=== PATIENT | female | born 1980 | race Caucasian/White ===

== ENCOUNTER 2016-10-01 23:59 | Observation (INO) | payer OTHER ==
[2016-10-02 00:08] VITALS: BMI 46.5
[2016-10-02] MEDS ORDERED: ALBUTEROL SO4 2.5/IPRATROPIUM 0.5 INH SOL 3 ML VIAL.NEB. NEB ONE (01:03)
--- NOTE | 2016-10-02 01:06 | PDOC ---
History of Present Illness - General Chief Complaint: Shortness of Breath Stated Complaint: HEAD/NECK PROBLEM Time Seen by Provider: 10/02/16 00:39 - History of Present Illness Initial Comments: 10/02/16 01:04 CHIEF COMPLAINT: chest pain/SOB HISTORY OF PRESENT ILLNESS: 36 yo F with hx of morbid obesity, prediabetes (on Metformin) and HTN (on Lisinopril) presents to ED with head and neck pain and shortness of breath since yesterday with associated chest pain. Patient states she had a bad headache yesterday and then later started feeling a lot of chest pressure and felt like she couldn't breathe. She denies any radiation of pain to her jaw or left arm and reports that the pain is more to the sides of her neck. No recent travel or sick contacts. PAST MEDICAL HISTORY: HTN, prediabetic FAMILY HISTORY: Denies SOCIAL HISTORY: Denies tobacco, alcohol, illicit drug use. SURGICAL HISTORY: hysterectomy ALLERGIES: PCN REVIEW OF SYSTEMS General/Constitutional: Denies fever or chills. Denies weakness, weight change. HEENT: Denies change in vision. Denies ear pain or discharge. Denies sore throat. Cardiovascular: Denies chest pain or shortness of breath. Respiratory: Denies cough, wheezing, or hemoptysis. Gastrointestinal: Denies nausea, vomiting, diarrhea or constipation. Denies rectal bleeding. Genitourinary: Denies dysuria, frequency, or change in urination. Musculoskeletal: Neck discomfort. Denies joint or muscle swelling or pain. Skin and breasts: Denies rash or easy bruising. Neurologic: Right sided head pain. Denies vertigo, loss of consciousness, or loss of sensation. PHYSICAL EXAM General Appearance: Well-appearing, appropriately dressed. No apparent distress. HEENT: EOMI, PERRLA, normal ENT inspection, normal voice, TMs normal, pharynx normal. No conjunctival pallor. No photophobia, scleral icterus. Neck: Supple. Trachea midline. No tenderness, rigidity, carotid bruit, stridor , lymphadenopathy, or thyromegaly. Respiratory/Chest: Shortness of breath. Lungs CTAB. No respiratory distress, accessory muscle use. No crackles, rales, rhonchi, stridor, wheezing, dullness Cardiovascular: RRR. S1, S2. No JVD, murmur, bradycardia, tachycardia. Musculoskeletal/Extremities: Normal inspection. FROM of all extremities, normal capillary refill. Pelvis Stable. No CVA tenderness. No tenderness to extremities, pedal edema, swelling, erythema or deformity. Integumentary: Appropriate color, dry, warm. No cyanosis, erythema, jaundice or rash Neurologic: programmer developer II-XII intact. Fully oriented, alert. Appropriate mood/affect. Motor strength 5/5. No appreciable EOM palsy, facial droop or sensory deficit. Past History - Past Medical History Allergies/Adverse Reactions: Allergies Allergy/AdvReac Type Severity Reaction Status Date / Time Penicillins Allergy Verified 10/02/16 00:04 Home Medications: Ambulatory Orders Lisinopril 10 mg PO DAILY 10/02/16 Metformin HCl [Glucophage] 500 mg PO DAILY 10/02/16 Diabetes: Yes (borderline) HTN: Yes - Immunization History Td Vaccination: No Immunization Up to Date: No - Psycho/Social/Smoking Cessation Hx Anxiety: No Suicidal Ideation: No Smoking Status: No Smoking History: Never smoked Have you smoked in the past 12 months: No Number of Cigarettes Smoked Daily: 0 Hx Alcohol Use: Yes (Ocassional) Drug/Substance Use Hx: No Substance Use Type: None Hx Substance Use Treatment: No *Physical Exam - Vital Signs Last Vital Signs Temp Pulse Resp BP Pulse Ox 97.9 F 80 16 159/72 99 10/02/16 00:05 10/02/16 00:05 10/02/16 00:05 10/02/16 00:05 10/02/16 00:05 Heart Score/ECG Review - History History: Moderately suspicious - Electrocardiogram EKG: Normal - Age Age: </= 45 - Risk Factors Risk Factors Heart Score: Yes Hx Hypertension, Yes Hx Diabetes, Yes Hx Obesity Based on the list above the patient has:: >/=3 risk factors or Hx atherosclerotic disease - Troponin Troponin: </= normal limit - Score Heart Score - Total: 3 ED Treatment Course - LABORATORY CBC & Chemistry Diagram: 10/02/16 01:24 10/02/16 01:24 - RADIOLOGY Radiology Studies Ordered: Category Date Time Status CHEST PA & LAT [RAD] Stat Radiology 10/02/16 01:02 Ordered Medical Decision Making - Medical Decision Making 10/02/16 06:06 36 yo F with hx of morbid obesity, prediabetes (on Metformin) and HTN (on Lisinopril) presents to ED with head and neck pain and shortness of breath since yesterday with associated chest pain. -CBC, CMP, D-dimer -EKG, CXR -Duoneb EKG - NSR Chest x-ray negative for pulm pathology. Discussed case with attending MD Lynn. Will order Head CT to r/o intracranial pathology. Head CT negative. Per MD Lynn, will admit for obs for ANDREW. -Troponin added to be run from previous labs, will repeat trop at this time. -Mg, PT/INR 10/02/16 06:29 First trop negative. Discussed case with hospitalist attending MD Yepez, who accepts patient for obs for ANDREW. *DC/Admit/Observation/Transfer Diagnosis at time of Disposition: Chest pain, rule out acute myocardial infarction - Discharge Dispostion Admit: Yes
[2016-10-02 01:38] LABS: BASOPHIL 0.8 % (0-2.0); EOSINOPHIL 1.3 % (0-4.5); MCHC 33.8 g/dl (32.0-36.0); MEAN CELL VOLUME 82.7 fl (80-96); NEUTROPHILS 57.8 % (42.8-82.8); PLATELET COUNT 255 K/MM3 (134-434); RDW 13.8 % (11.6-15.6); WHITE BLOOD COUNT 8.5 K/mm3 (4.0-10.0)
[2016-10-02 02:01] LABS: ALBUMIN 3.6 g/dl (3.4-5.0); ALK PHOS 76 U/L (45-117); ANION GAP 10 (8-16); BILIRUBIN,TOTAL 0.4 mg/dL (0.2-1.0); CALCIUM 8.9 mg/dL (8.5-10.1); CO2 27 mmol/L (21-32); CREATININE 0.5 mg/dL (0.55-1.02); GLUCOSE,RANDOM 135 mg/dL (74-106); SGOT/AST 26 U/L (15-37); SGPT/ALT 50 U/L (12-78); TOT PROT 7.2 g/dl (6.4-8.2)
[2016-10-02 06:21] LABS: TROPONIN I < 0.02 ng/ml (0.00-0.05)
[2016-10-02 07:04] LABS: INR 1.02 (0.82-1.09); PROTHROMBIN TIME (PATIENT) 11.2 SEC (9.98-11.88)
[2016-10-02] MEDS ORDERED: SODIUM CHLORIDE 1,000 ML IV SCH (08:30)
--- NOTE | 2016-10-02 08:58 | PN ---
Progress Note (short form) - Note Progress Note: Consult dictated IMP: Right sided neck pain and fullness radiating to anterior chest Pleuritic chest pain Tenderness and fullness right neck REC: Serial cardiac enzymes, doubt ACS Concern for neck soft tissue mass: CT Neck and chest Echo to rule out pericardial effusion
--- NOTE | 2016-10-02 09:36 | EKG ---
Test Reason : Blood Pressure : / mmHG Vent. Rate : 069 BPM Atrial Rate : 069 BPM P-R Int : 168 ms QRS Dur : 098 ms QT Int : 402 ms P-R-T Axes : 047 072 052 degrees QTc Int : 430 ms NORMAL SINUS RHYTHM WITH SINUS ARRHYTHMIA NO PREVIOUS ECGS AVAILABLE Confirmed by MARY RUIZ MD ([id number]) on 10/02/2016 9:35:35 AM Referred By: Confirmed By:MARY RUIZ MD
[2016-10-02] MEDS: LISINOPRIL 10 MG TABLET (FP) PO SCH (09:50)
[2016-10-02] MEDS: ASPIRIN COATED 81 MG TABLET.EC PO SCH (09:50)
--- NOTE | 2016-10-02 10:24 | HP ---
CHIEF COMPLAINT: Chest pain x 3 days PCP: HISTORY OF PRESENT ILLNESS: 36 year old female that presents to the emergency department complaining of 3 day history of mid sternal chest pain, 7/10 in intensity,constant , radiating to the right side of the neck and left upper chest, worsened with deep inspiration. No alleviating factors. Denies associated nausea, vomiting or diaphoresis. No previous episodes of chest pain like this before. Recent Travel: NO PAST MEDICAL HISTORY: DM HTN PAST SURGICAL HISTORY: Tubal Ligation Social History: Smoking: denies Alcohol:denies Drugs: denies Family History: No history of premature coronary disease No history of cancer Allergies Penicillins Allergy (Verified 10/02/16 00:04) HOME MEDICATIONS: Home Medications Medication Instructions Recorded Lisinopril 10 mg PO DAILY 10/02/16 Metformin HCl [Glucophage] 500 mg PO DAILY 10/02/16 REVIEW OF SYSTEMS CONSTITUTIONAL: Absent: fever, chills, diaphoresis, generalized weakness, malaise, loss of appetite, weight change HEENT: Absent: rhinorrhea, nasal congestion, throat pain, throat swelling, difficulty swallowing, mouth swelling, ear pain, eye pain, visual changes CARDIOVASCULAR: Absent: syncope, palpitations, irregular heart rate, lightheadedness RESPIRATORY: Absent: cough, shortness of breath, dyspnea with exertion, orthopnea, wheezing, stridor, hemoptysis GASTROINTESTINAL: Absent: abdominal pain, abdominal distension, nausea, vomiting, diarrhea, constipation, melena, hematochezia GENITOURINARY: Absent: dysuria, frequency, urgency, hesitancy, hematuria, flank pain, genital pain MUSCULOSKELETAL: Absent: myalgia, arthralgia, joint swelling, back pain. Positive for right sided neck pain SKIN: Absent: rash, itching, pallor HEMATOLOGIC/IMMUNOLOGIC: Absent: easy bleeding, easy bruising, lymphadenopathy, frequent infections ENDOCRINE: Absent: unexplained weight gain, unexplained weight loss, heat intolerance, cold intolerance NEUROLOGIC: Absent: headache, focal weakness or paresthesias, dizziness, unsteady gait, seizure, mental status changes, bladder or bowel incontinence PSYCHIATRIC: Absent: anxiety, depression, suicidal or homicidal ideation, hallucinations. PHYSICAL EXAMINATION Vital Signs - 24 hr 10/02/16 10/02/16 10/02/16 06:50 07:17 07:33 Temperature 97.7 F 98.1 F Pulse Rate [ 67 60 Radial] Respiratory 20 18 Rate Blood Pressure 144/68 110/62 [Left Arm] O2 Sat by Pulse 98 100 100 Oximetry (%) GENERAL: Awake, alert, and fully oriented, in no acute distress. HEAD: Normal with no signs of trauma. EYES: Pupils equal, round and reactive to light, extraocular movements intact, sclera anicteric, conjunctiva clear. No lid lag. EARS, NOSE, THROAT: Ears normal, nares patent, oropharynx clear without exudates. Moist mucous membranes. NECK: Normal range of motion, supple without lymphadenopathy, tenderness on palpation of right parotid and submandibular area, no nodules appreciated LUNGS: Breath sounds equal, clear to auscultation bilaterally. No wheezes, and no crackles. No accessory muscle use. HEART: Regular rate and rhythm, normal S1 and S2 without murmur, rub or gallop. ABDOMEN: Soft, nontender, not distended, normoactive bowel sounds, no guarding, no rebound, no masses. Obese . MUSCULOSKELETAL: Normal range of motion at all joints. No bony deformities or tenderness. No CVA tenderness. UPPER EXTREMITIES: 2+ pulses, warm, well-perfused. No cyanosis. No clubbing. No peripheral edema. LOWER EXTREMITIES: 2+ pulses, warm, well-perfused. No calf tenderness. No peripheral edema. NEUROLOGICAL: Cranial nerves II-XII intact. Normal speech. Normal gait. PSYCHIATRIC: Cooperative. Good eye contact. Appropriate mood and affect. SKIN: Warm, dry, normal turgor, no rashes or lesions noted, normal capillary refill. Laboratory Abnormal Lab Results 10/02/16 01:24 Creatinine 0.5 L D Random Glucose 135 H D Rest of the labs are reviewed and within normal limits Troponin is negative x 1 EKG shows NSR , no acute changes ASSESSMENT/PLAN: 36 year old female with risk factors for CAD hospitalized under observation status for management of chest pain which appears to be rather musculoskeletal or pleuritic . ACS is unlikely, pain now lasted for three days , non exertional , constant , troponin is negative and EKG is normal PE- unlikely , DDimer is negative. Will obtain CT chest and Echo to rule out pericardial effusion, CT chest and neck due to abnormal neck exam . Visit type - Emergency Visit Emergency Visit: Yes ED Registration Date: 10/02/16 Care time: The patient presented to the Emergency Department on the above date and was hospitalized for further evaluation of their emergent condition. - New Patient This patient is new to me today: Yes Date on this admission: 10/02/16 - Critical Care Critical Care patient: No
--- NOTE | 2016-10-02 11:06 | CONS ---
CARDIOLOGY CONSULTATION DATE OF CONSULTATION: 10/02/2016 CONSULTATION REQUESTED BY: Irena Yepez MD REASON FOR CONSULTATION: Chest pain. HISTORY OF PRESENT ILLNESS: The patient is a 36-year-old female with hypertension and diabetes who presents to the ER for evaluation of several complaints, which began on , primarily right-sided neck pain and posterior cervical pain, which radiates anteriorly to the anterior neck and anterior portion of the precordium. It is worse with motion of her neck and movement of her torso. It is tender to palpation. She also is experiencing shortness of breath and pleuritic chest pain. In the emergency department, O2 saturation was normal, and D-dimer was negative. She was placed on telemetry for cardiac monitoring. The patient denies exertional chest pain prior to . She denies airline travel or recent viral upper respiratory infections. She denies fevers or chills. PAST MEDICAL HISTORY: Her past medical history is consistent with hypertension, diabetes. PREVIOUS SURGIES: Previous surgeries include ovarian cysts and tubal ligation. ALLERGIES: She is allergic to PENICILLIN. MEDICATIONS: Her home medications include metformin and lisinopril. FAMILY HISTORY: There is no family history of early myocardial infarction. No history of sudden cardiac . No history of arrhythmia or venous thromboembolism. SOCIAL HISTORY: Nonsmoker. Drinks alcohol only socially. PHYSICAL EXAM: Vital signs: She is afebrile. Temperature 98.1. Pulse 60 and regular. Blood pressure 140/70. O2 100% on room air. Neck: The right side of the neck appears slightly full and is tender to palpation. There is some fullness as well on palpating the right anterior neck and right lateral neck. It is tender to palpation. There is no overlying erythema. Pulses seem symmetric bilaterally in the carotid distribution, and there are no bruits. Heart: Regular with no murmurs. Chest: Clear with no wheezing. Abdomen: Obese, soft, nontender. Extremities: No edema. Her radial pulses were 2+ and symmetric bilaterally. Her present EKG showed normal sinus rhythm with sinus arrhythmia at 69 beats per minute and baseline artifact. No acute ST changes. White count 8.5, hematocrit 34, platelets 255. D-dimer negative. Sodium 139, potassium 3.8. Creatinine 0.5. Troponin is negative. Serum test was negative. Chest x-ray showed no acute infiltrates. A CT scan of the head was performed in the ER, which showed no evidence of acute infarction. IMPRESSION: Esfbyp-upp-fyio-old female with diabetes. Two days of right-sided neck pain. Fullness, tenderness to palpation, radiating anteriorly to the anterior precordium. There is also pleuritic chest pain. I doubt that this is an acute coronary syndrome. I am more concerned about a soft tissue mass or possible inflammation/infection in the right side of the neck. PLAN: 1. CT of the neck, with and without contrast. CTA chest as well, given her pleuritic chest pain, to rule out pulmonary embolism. Obesity seems to be a risk factor. 2. Cardiac enzymes. 3. Echocardiogram to rule out pericardial effusion. 4. Discontinue metformin temporarily and hydrate. 5. Further recommendations pending above diagnostic studies. Thank you for the consultation. MARY RUIZ M.D. [id number] MTDD
--- NOTE | 2016-10-02 12:41 | PN ---
Progress Note (short form) - Note Progress Note: CT confirms LAD right neck 1cm. No mass seen in neck or chest. Check ESR, CRP, LDH. Onc and ENT eval requested.
[2016-10-02 14:11] LABS: TROPONIN I < 0.02 ng/ml (0.00-0.05)
[2016-10-02 14:40] LABS: C-REACTIVE PROTEIN 0.8 MG/DL (0.00-0.3)
--- NOTE | 2016-10-02 17:57 | CONSULT ---
Consult Consult Specialty:: Oncology Referred by:: Dr. Sanchez Reason for Consultation:: lymphadenopathy neck - History of Present Illness Chief Complaint: 36 year old presents with 3 days of pleuritic chest pains radiating into neck . CT of neck on right with 1.6 cm lymph node with central hilum and smaller left neck node with central hilum - History Source History Provided By: Patient Limitations to Obtaining History: Language Barrier - Past Medical History ...LMP: 09/07/16 ...: No ...: 3 ...Para: 3 - Alcohol/Substance Use Hx Alcohol Use: No - Smoking History Smoking history: Never smoked Have you smoked in the past 12 months: No Aproximately how many cigarettes per day: 0 - Social History Occupation: not working Place of : [facility] ([place]) Came to .S. (year): age 14 History of Recent Travel: No Home Medications - Allergies Allergies/Adverse Reactions: Allergies Allergy/AdvReac Type Severity Reaction Status Date / Time Penicillins Allergy Verified 10/02/16 00:04 - Home Medications Home Medications: Ambulatory Orders Lisinopril 10 mg PO DAILY 10/02/16 Metformin HCl [Glucophage] 500 mg PO DAILY 10/02/16 Family Disease History - Family Disease History Other Family History: no history of cancer or blood disorder in family ; Mother and father both living ; Family hx of diabetes Mellitus Review of Systems - Review of Systems Constitutional: denies: Diaphoresis, Fever, Lethargy, Loss of Appetite, Weakness Eyes: denies: Blurred Vision, Double Vision HENT: denies: Difficult Swallowing, Throat Pain Neck: reports: Pain on Movement, Swollen Glands Cardiovascular: reports: Chest Pain, Shortness of Breath, Other (pleuritic pain x 3 days) Respiratory: reports: Other (pleuritic pain). denies: Cough, Hemoptysis Gastrointestinal: denies: Abdominal Pain, Constipation, Diarrhea Genitourinary: denies: Burning, Dysuria Breasts: reports: No Symptoms Reported Musculoskeletal: denies: Back Pain, Extremity Pain Integumentary: denies: No Symptoms, Eczema Neurological: reports: No Symptoms Endocrine: reports: No Symptoms Hematology/Lymphatic: reports: No Symptoms Psychiatric: reports: No Symptoms Physical Exam Vital Signs: Vital Signs Temperature 98.2 F 10/02/16 14:36 Pulse Rate 72 10/02/16 14:36 Respiratory Rate 16 10/02/16 14:36 Blood Pressure 109/70 10/02/16 14:36 O2 Sat by Pulse Oximetry (%) 100 10/02/16 08:28 Constitutional: Yes: No Distress Eyes: Yes: EOM Intact, PERRL. No: Diplopia, Ptosis, Sclera Icterus HENT: Yes: Normocephalic. No: Epistaxis, Hoarseness, Tonsillar Exudate Neck: Yes: Other (could not definitely appreciate adenopathy) Cardiovascular: Yes: Regular Rate and Rhythm Respiratory: Yes: CTA Bilaterally Gastrointestinal: Yes: Normal Bowel Sounds, Soft, Abdomen, Obese. No: Hepatomegaly, Splenomegaly, Tenderness Renal/: No: Bladder Distention, CVA Tenderness - Left, CVA Tenderness - Right Breast(s): Yes: WNL Musculoskeletal: No: Back Pain, Muscle Pain Extremities: Yes: WNL. No: Calf Tenderness, Cold Edema: No Integumentary: Yes: WNL Neurological: Yes: WNL ...Motor Strength: WNL Psychiatric: Yes: WNL Imaging - Results Cat Scan: Report Reviewed (right neck with 1.6 cm lymph node with central hilum and smaller node on left neck with central hilum) Problem List - Problems (1) Lymphadenopathy Assessment/Plan: Patient presents with 3 day history of pleuritic chest pains radiating to right neck . On CT imaging 1.6 cm right neck node with central hilum, and smaller left neck node with central hilum noted . Adenopathy on right is only minimally enlarged (upper normal-1.0 cm). The central hilum bespeaks for a benign lymph node rather than an infiltrated one. No recent infection or sinus tenderness reported. It is hard to tie the adenopathy and the chest pain together. . Although benign appearing node, it is mildly enlarged. ENT evaluation pending. EBV, CMV, Toxo titers, SHANTE, collagen screen, ESR to be ordered. If non revealing, can f/u with repeat sono in 3 months. Pending ENT evaluation , can give antibiotic trial for 2 weeks and reimage thereafter Would also do sono of liver. Code(s): R59.1 - GENERALIZED ENLARGED LYMPH NODES
--- NOTE | 2016-10-02 18:53 | CONSULT ---
Consult Consult Specialty:: ENT Referred by:: Dr. Sanchez Reason for Consultation:: enlarged lymph nodes - History of Present Illness History of Present Illness: 36 yo F admitted having pleuritic chest pain, right sided neck pain CT scan shows enlarged lymph nodes nonsmoker, denies throat pain, hoarseness, trouble swallowing no nasal allergies or bleeding denies recent cold or acute illness - History Source History Provided By: Patient, Medical Record Limitations to Obtaining History: Language Barrier - Past Medical History ...LMP: 09/07/16 ...: No - Alcohol/Substance Use Hx Alcohol Use: No - Smoking History Smoking history: Never smoked Have you smoked in the past 12 months: No Aproximately how many cigarettes per day: 0 - Social History Occupation: not working History of Recent Travel: No Home Medications - Allergies Allergies/Adverse Reactions: Allergies Allergy/AdvReac Type Severity Reaction Status Date / Time Penicillins Allergy Verified 10/02/16 00:04 - Home Medications Home Medications: Ambulatory Orders Lisinopril 10 mg PO DAILY 10/02/16 Metformin HCl [Glucophage] 500 mg PO DAILY 10/02/16 Family Disease History - Family Disease History Other Family History: no history of cancer or blood disorder in family ; Mother and father both living ; Family hx of diabetes Mellitus Physical Exam Vital Signs: Vital Signs Temperature 97.7 F 10/02/16 18:00 Pulse Rate 71 10/02/16 18:00 Respiratory Rate 18 10/02/16 18:00 Blood Pressure 137/74 10/02/16 18:00 O2 Sat by Pulse Oximetry (%) 100 10/02/16 08:28 Constitutional: Yes: No Distress, Calm, Obese Eyes: Yes: WNL HENT: Yes: Other (nose DNS, mucosal edema, nasopharynx normal, mouth poor dentition, no lesions tongue position 3, soft palate elongated, Flexible laryngoscopy: base of tongue retro 2+, no lesion visible, epiglottis normal, endolarynx normal, airway patent, no discrete lesion, arytenoid edema, VC mobile symmetric) Neck: Yes: Other (full neck, no discrete mass, supple, salivary glands normal, lymph node palpable Level 2 left, sl tender right jugulodigastric region. significant fullness of neck soft tissue limits accurate palpation) Cardiovascular: Yes: Bradycardia Extremities: Yes: WNL Neurological: Yes: Alert, Oriented Imaging - Results Cat Scan: Report Reviewed, Image Reviewed Problem List - Problems (1) Lymphadenopathy Assessment/Plan: 2 slightly enlarged lymph nodes noted on CT scan of neck Dr. Downing's evaluation noted and appreciated pt is a nonsmoker, has no throat symptoms and flexible laryngoscopy does not reveal any obvious upper airway lesions CT scan images reviewed, no masses noted suspect lymph nodes are reactive, suggest follow-up pts PMD in [facility] ([facility] she does not remember his/her name suggest outpatient follow-up after discharge Thank you for consultation, Kimani Watts MD FACS Code(s): R59.1 - GENERALIZED ENLARGED LYMPH NODES
[2016-10-02 20:33] LABS: TROPONIN I < 0.02 ng/ml (0.00-0.05)
[2016-10-03] MEDS: LISINOPRIL 10 MG TABLET (FP) PO SCH (10:29)
[2016-10-03] MEDS: ASPIRIN COATED 81 MG TABLET.EC PO SCH (10:29)
--- NOTE | 2016-10-03 10:43 | PN ---
Progress Note, Physician History of Present Illness: seen and examined today in [facility]. no overnight events. no new complaints. no further chest pain. - Current Medication List Current Medications: Active Medications Aspirin (Ecotrin -) 81 mg PO DAILY [facility] Last Admin: 10/03/16 10:29 Dose: 81 mg Lisinopril (Prinivil) 10 mg PO DAILY [facility] Last Admin: 10/03/16 10:29 Dose: 10 mg - Objective Vital Signs: Vital Signs Temperature 98.4 F 10/03/16 09:40 Pulse Rate 58 L 10/03/16 09:40 Respiratory Rate 10/03/16 09:40 Blood Pressure 120/74 10/03/16 09:40 O2 Sat by Pulse Oximetry (%) 97 10/02/16 20:42 Constitutional: Yes: No Distress, Calm, Obese Eyes: Yes: Conjunctiva Clear, EOM Intact, PERRL HENT: Yes: Atraumatic, Normocephalic Neck: Yes: Supple, Trachea Midline, Lymphadenopathy Cardiovascular: Yes: Regular Rate and Rhythm, S1, S2. No: Bradycardia, Tachycardia, Pulse Irregular, Bruit, JVD, Gallop, Murmur, Rub, S3, S4, Varicosities Respiratory: Yes: Regular, CTA Bilaterally. No: Rales, Rhonchi, Wheezes Gastrointestinal: Yes: WNL, Normal Bowel Sounds, Soft. No: Distention, Tenderness Musculoskeletal: Yes: WNL Extremities: Yes: WNL Edema: No Peripheral Pulses WNL: Yes Peripheral Pulses: Left Doralis Pedis: 2+, Right Dorsalis Pedis: 2+ Integumentary: Yes: WNL Neurological: Yes: WNL, Alert, Oriented, Cran Nerves II-XII Intact ...Motor Strength: WNL Psychiatric: Yes: WNL, Alert, Oriented Labs: INR, PTT INR 1.02 (0.82-1.09) 10/02/16 06:00 - ....Imaging Chest X-ray: Report Reviewed, Image Reviewed EKG: Report Reviewed, Image Reviewed Other: Report Reviewed, Image Reviewed (tele-nsr, occasional apcs) Assessment/Plan 36 year old woman with a history of borderline DM II, HTN, Obesity admitted with atypical chest pain and right sided neck pain and swelling. Chest pain-atypical unlikely cardiac in origin -cardiac enzymes wnl -no ischemia on ekg -no sig arrhythmias on telemetry -chest pain resolved -echo showed normal LV systolic function, no pericardial effusion, no sig valvular abnormalities -no additional planned inpatient cardiac work up at this point -ok to dc tele if pt to remain inpatient -if patient discharged would recc follow up with cardiology within 1-2 weeks for re-evaluation and consideration for possible exercise treadmill stress test HTN-well controlled -cont lisinopril Neck mass- -ENT and Onc evaluations appreciated, likely reactive lymph nodes
--- NOTE | 2016-10-03 11:34 | PN ---
Progress Note (short form) - Note Progress Note: ID Consult dictated Cervical adenopathy, likely reactive Agree with workup as ordered Obtain Quantiferon Declines HIV testing ( States she tested negative at [facility] one month ago) Observe off antibiotics
--- NOTE | 2016-10-03 11:52 | CONS ---
DATE OF CONSULTATION: DATE OF DICTATION: 10/03/2016 HISTORY OF PRESENT ILLNESS: A 36-year-old female, history of obesity, hypertension, evaluated for cervical adenopathy. She had presented to the hospital with complaints of chest pain. She initially complained of headache with subsequent chest pressure and increasing shortness of breath. She was admitted to the telemetry floor for workup. She also complained of neck pain. A CAT scan of the neck was performed and showed small cervical lymph nodes in the right upper jugular chain. She denies any recent febrile illness or shaking chills. She has had no complaints of sinusitis, pharyngitis, otitis, or dental infection. Patient denies any recent respiratory tract illness. She is originally from [place]. Has been living in the [place] 4 [place]. She denies TB exposure. Denies risk factors for HIV. States she tested HIV negative 1 month ago at [facility]. PAST MEDICAL HISTORY: Positive for obesity and hypertension. ALLERGIES: PENICILLIN. MEDICATIONS: Lisinopril, Glucophage. PAST SURGICAL HISTORY: Status post ovarian cyst and tubal ligation. LABORATORY DATA: White count 8.5 with normal differential. ESR 26. C-reactive protein 0.8. SOCIAL HISTORY: Negative for tobacco, alcohol, or illicit drugs. PHYSICAL EXAMINATION: General: Patient is awake and alert. She is not acutely toxic appearing. Morbidly obese. Vital Signs: Temperature 98.4, blood pressure 120/74, pulse 58, regular, respiration 17 per minute. HEENT: Sclerae anicteric. Oropharynx negative. Neck: Supple. Small mobile nontender lymph nodes present below the angle of the jaw bilaterally. No other adenopathy palpable. Cardiac: Heart sounds S1, S2. Lungs: Clear. Abdomen: Obese, soft, nontender. Extremities: Negative for edema. No rash. IMPRESSION: Cervical adenopathy, likely reactive secondary to recent infection. Agree with workup as ordered. CMV, EBV, and toxo titers have been requested. Will order QuantiFERON gold. She declines HIV testing as she states she tested negative 1 month ago at [facility]. Observe off antibiotic therapy. MARY BLACK M.D. [id number]
--- NOTE | 2016-10-03 14:27 | PN ---
Physical Exam: SUBJECTIVE: Patient seen and examined Patient has no further chest pain. has no complains. OBJECTIVE: Vital Signs Temperature 98.4 F 10/03/16 09:40 Pulse Rate 58 L 10/03/16 09:40 Respiratory Rate 17 10/03/16 09:40 Blood Pressure 120/74 10/03/16 09:40 O2 Sat by Pulse Oximetry (%) 98 10/03/16 09:40 GENERAL: The patient is awake, alert, and fully oriented, in no acute distress. morbidly obese HEAD: Normal with no signs of trauma. EYES: PERRL, extraocular movements intact, sclera anicteric, conjunctiva clear. No ptosis. ENT: Ears normal, nares patent, oropharynx clear without exudates, moist mucous membranes. NECK: Trachea midline, full range of motion, supple. could not appreciate adenopathy LUNGS: Breath sounds equal, clear to auscultation bilaterally, no wheezes, no crackles, no accessory muscle use. HEART: Regular rate and rhythm, S1, S2 without murmur, rub or gallop. ABDOMEN: Soft, nontender, nondistended, normoactive bowel sounds, no guarding, no rebound, no hepatosplenomegaly, no masses. EXTREMITIES: 2+ pulses, warm, well-perfused, no edema. NEUROLOGICAL: Cranial nerves II through XII grossly intact. Normal speech, gait not observed. PSYCH: Normal mood, normal affect. SKIN: Warm, dry, normal turgor, no rashes or lesions noted CBCD WBC 8.5 K/mm3 (4.0-10.0) D 10/02/16 01:24 RBC 4.13 M/mm3 (3.60-5.2) 10/02/16 01:24 Hgb 11.6 GM/dL (10.7-15.3) 10/02/16 01:24 Hct 34.2 % (32.4-45.2) 10/02/16 01:24 MCV 82.7 fl (80-96) 10/02/16 01:24 MCHC 33.8 g/dl (32.0-36.0) 10/02/16 01:24 RDW 13.8 % (11.6-15.6) 10/02/16 01:24 Plt Count 255 K/MM3 (134-434) 10/02/16 01:24 MPV 9.0 fl (7.5-11.1) 10/02/16 01:24 CMP Sodium 139 mmol/L (136-145) 10/02/16 01:24 Potassium 3.8 mmol/L (3.5-5.1) 10/02/16 01:24 Chloride 102 mmol/L (98-107) 10/02/16 01:24 Carbon Dioxide 27 mmol/L (21-32) 10/02/16 01:24 Anion Gap 10 (8-16) 10/02/16 01:24 BUN 8 mg/dL (7-18) D 10/02/16 01:24 Creatinine 0.5 mg/dL (0.55-1.02) L D 10/02/16 01:24 Creat Clearance w eGFR > 60 (>60) 10/02/16 01:24 Random Glucose 135 mg/dL (74-106) H D 10/02/16 01:24 Calcium 8.9 mg/dL (8.5-10.1) 10/02/16 01:24 Total Bilirubin 0.4 mg/dL (0.2-1.0) D 10/02/16 01:24 AST 26 U/L (15-37) 10/02/16 01:24 ALT 50 U/L (12-78) D 10/02/16 01:24 Alkaline Phosphatase 76 U/L (45-117) 10/02/16 01:24 Total Protein 7.2 g/dl (6.4-8.2) 10/02/16 01:24 Albumin 3.6 g/dl (3.4-5.0) 10/02/16 01:24 CARDIAC ENZYMES Creatine Kinase 129 IU/L (26-192) 10/02/16 19:30 Troponin I < 0.02 ng/ml (0.00-0.05) 10/02/16 19:30 Laboratory Results - last 24 hr 10/02/16 10/02/16 10/02/16 13:50 13:50 19:30 ESR 26 H POC Glucometer LD Total 140 Creatine Kinase 129 Troponin I < 0.02 C-Reactive Protein 0.8 H Rheumatoid Factor 10/03/16 10/03/16 06:33 08:00 ESR POC Glucometer 118 LD Total Creatine Kinase Troponin I C-Reactive Protein Rheumatoid Factor < 10.0 Active Medications Generic Name Dose Route Start Last Admin Trade Name Medardo PRN Reason Stop Dose Admin Aspirin 81 mg 10/02/16 10:00 10/03/16 10:29 Ecotrin - PO 81 mg DAILY MEGAN Administration Lisinopril 10 mg 10/02/16 10:00 10/03/16 10:29 Prinivil PO 10 mg DAILY MEGAN Administration ASSESSMENT/PLAN: 36 year old woman with a history of borderline DM II, HTN, Obesity admitted with atypical chest pain and right sided neck pain and swelling. # Atypical Chest pain resolved ; Lopez wnl ;no ischemia on ekg ;no sig arrhythmias on telemetry; ECHO within normal limits As per cardiology recommendation when patient gets discharged would recc follow up with cardiology within 1-2 weeks for re-evaluation and consideration for possible exercise treadmill stress test #HTN-well controlled on lisinopril # Neck mass with hepatomegally follow up with as an outpatient #Obesity Weight loss was discussed with the patient follow up with within a week period to obtain the result of labs that was drawn in the hospital ; follow the Quantiferon result, EBV,toxoplasmasosis, Borrelia, CMV level. Low fat/low carbohydrate diet recommended follow up with marketing research intern for a stress test and echo within 1-2 weeks Follow with in 2 weeks to follow the lymph node of the neck
[2016-10-03 15:26] VITALS: BP 115/65; PULSE 66; TEMP 98.8
--- NOTE | 2016-10-03 19:54 | DS ---
Physical Exam: SUBJECTIVE: Patient seen and examined Patient has no further chest pain. has no complains. OBJECTIVE: Vital Signs Temperature 98.4 F 10/03/16 09:40 Pulse Rate 58 L 10/03/16 09:40 Respiratory Rate 17 10/03/16 09:40 Blood Pressure 120/74 10/03/16 09:40 O2 Sat by Pulse Oximetry (%) 98 10/03/16 09:40 Vital Signs Period Temp Pulse Resp BP Sys/Branham Pulse Ox Last 24 Hr 98.4 F-98.8 F 58-66 17-22 103-130/46-74 97-98 PHYSICAL EXAM GENERAL: The patient is awake, alert, and fully oriented, in no acute distress. morbidly obese HEAD: Normal with no signs of trauma. EYES: PERRL, extraocular movements intact, sclera anicteric, conjunctiva clear. No ptosis. ENT: Ears normal, nares patent, oropharynx clear without exudates, moist mucous membranes. NECK: Trachea midline, full range of motion, supple. could not appreciate adenopathy LUNGS: Breath sounds equal, clear to auscultation bilaterally, no wheezes, no crackles, no accessory muscle use. HEART: Regular rate and rhythm, S1, S2 without murmur, rub or gallop. ABDOMEN: Soft, nontender, nondistended, normoactive bowel sounds, no guarding, no rebound, no hepatosplenomegaly, no masses. EXTREMITIES: 2+ pulses, warm, well-perfused, no edema. NEUROLOGICAL: Cranial nerves II through XII grossly intact. Normal speech, gait not observed. PSYCH: Normal mood, normal affect. SKIN: Warm, dry, normal turgor, no rashes or lesions noted LABS CBCD WBC 8.5 K/mm3 (4.0-10.0) D 10/02/16 01:24 RBC 4.13 M/mm3 (3.60-5.2) 10/02/16 01:24 Hgb 11.6 GM/dL (10.7-15.3) 10/02/16 01:24 Hct 34.2 % (32.4-45.2) 10/02/16 01:24 MCV 82.7 fl (80-96) 10/02/16 01:24 MCHC 33.8 g/dl (32.0-36.0) 10/02/16 01:24 RDW 13.8 % (11.6-15.6) 10/02/16 01:24 Plt Count 255 K/MM3 (134-434) 10/02/16 01:24 MPV 9.0 fl (7.5-11.1) 10/02/16 01:24 CMP Sodium 139 mmol/L (136-145) 10/02/16 01:24 Potassium 3.8 mmol/L (3.5-5.1) 10/02/16 01:24 Chloride 102 mmol/L (98-107) 10/02/16 01:24 Carbon Dioxide 27 mmol/L (21-32) 10/02/16 01:24 Anion Gap 10 (8-16) 10/02/16 01:24 BUN 8 mg/dL (7-18) D 10/02/16 01:24 Creatinine 0.5 mg/dL (0.55-1.02) L D 10/02/16 01:24 Creat Clearance w eGFR > 60 (>60) 10/02/16 01:24 Random Glucose 135 mg/dL (74-106) H D 10/02/16 01:24 Calcium 8.9 mg/dL (8.5-10.1) 10/02/16 01:24 Total Bilirubin 0.4 mg/dL (0.2-1.0) D 10/02/16 01:24 AST 26 U/L (15-37) 10/02/16 01:24 ALT 50 U/L (12-78) D 10/02/16 01:24 Alkaline Phosphatase 76 U/L (45-117) 10/02/16 01:24 Total Protein 7.2 g/dl (6.4-8.2) 10/02/16 01:24 Albumin 3.6 g/dl (3.4-5.0) 10/02/16 01:24 CARDIAC ENZYMES Creatine Kinase 129 IU/L (26-192) 10/02/16 19:30 Troponin I < 0.02 ng/ml (0.00-0.05) 10/02/16 19:30 Laboratory Results - last 24 hr 10/02/16 10/03/16 10/03/16 19:30 06:33 08:00 POC Glucometer 118 Creatine Kinase 129 Troponin I < 0.02 Rheumatoid Factor < 10.0 Active Medications Generic Name Dose Route Start Last Admin Trade Name Medardo PRN Reason Stop Dose Admin Aspirin 81 mg 10/02/16 10:00 10/03/16 10:29 Ecotrin - PO 81 mg DAILY MEGAN Administration Lisinopril 10 mg 10/02/16 10:00 10/03/16 10:29 Prinivil PO 10 mg DAILY MEGAN Administration HOSPITAL COURSE: Date of Admission:10/02/16 Date of Discharge: 10/03/16 36 year old woman with a history of borderline DM II, HTN, Obesity admitted with atypical chest pain and right sided neck pain and swelling. # Atypical Chest pain resolved ; Lopez wnl ;no ischemia on ekg ;no sig arrhythmias on telemetry; ECHO within normal limits As per cardiology recommendation when patient gets discharged would recc follow up with cardiology within 1-2 weeks for re-evaluation and consideration for possible exercise treadmill stress test #HTN-well controlled on lisinopril # Neck mass with hepatomegally follow up with as an outpatient #Obesity Weight loss was discussed with the patient follow up with within a week period to obtain the result of labs that was drawn in the hospital ; follow the Quantiferon result, EBV,toxoplasmasosis, Borrelia, CMV level. Low fat/low carbohydrate diet recommended follow up with rn licensed practical for a stress test and echo within 1-2 weeks Follow with in 2 weeks to follow the lymph node of the neck discharge time 45minutes Minutes to complete discharge: 45 Discharge Summary Reason For Visit: CHEST PAIN R/O MYOCARDIAL INFARCTION Current Active Problems Chest pain, rule out acute myocardial infarction (Acute) Fever (Acute) Lymphadenopathy (Acute) Sepsis (Acute) Urinary tract infection (Acute) Condition: Stable - Instructions Diet, Activity, Other Instructions: follow up with within a week period to obtain the result of labs that was drawn in the hospital ; follow with the Quantiferon result, EBV, toxoplasmasosis, Borrelia, CMV level. Low fat/low carbohydrate diet follow up with rn licensed practical for a stress test and echo Follow with in 2 weeks to follow the lymph node of the neck Referrals: Gaurav Olsen MD [Staff Physician] - 1 Week Sasha Oliver MD [Staff Physician] - 1 Week Simone Hitchcock MD [Staff Physician] - 2 Weeks Rodo Downing MD [Staff Physician] - 2 Weeks Disposition: HOME - Home Medications Comprehensive Discharge Medication List: Ambulatory Orders Lisinopril 10 mg PO DAILY 10/02/16 Metformin HCl [Glucophage] 500 mg PO DAILY 10/02/16 This patient is new to me today: Yes Date on this admission: 10/03/16 Emergency Visit: Yes ED Registration Date: 10/02/16 Care time: The patient presented to the Emergency Department on the above date and was hospitalized for further evaluation of their emergent condition. Critical Care patient: No - Discharge Referral Referred to [facility] Yes Physician Referral: Sasha Oliver MD ([facility])
[2016-10-06 06:06] LABS: TOXOPLASMA IG-M QUANTITATIVE 4.9 AU/mL (0.0-7.9); TOXOPLASMA IGG QUANTITATIVE < 3.0 IU/mL (0.0-7.1)
== END 2016-10-03 16:53 | disposition home or self-care (01) ==
LOC: JER 23:59 → JERBED 10-02 06:30 → UNDOADMOB 10-02 06:40 → J4W 10-02 08:17
PROVIDERS: ADMIT Internal Medicine; ATTEND Internal Medicine
DX: R07.89 Other chest pain (principal); R59.0 Localized enlarged lymph nodes; E66.01 Morbid (severe) obesity due to excess calories; R73.03 Prediabetes; I10 Essential (primary) hypertension; M54.2 Cervicalgia; Z68.42 Body mass index [BMI] 45.0-49.9, adult; Z88.0 Allergy status to penicillin
CPT/HCPCS: 36415; 70450-TC; 70491-TC; 71020-TC; 71260-TC; 76705-TC; 80053; 82550; 82553; 83615; 83735; 84484; 84703; 85025; 85379; 85610; 85651; 86038; 86140; 86225; 86431; 86480; 86611; 86644; 86645; 86664; 86777; 86778; 93005; 93010; 93306-TC; 99285-25; G0378

== ENCOUNTER 2016-10-04 22:43 | Emergency (ER) | payer OTHER ==
[2016-10-04 22:52] VITALS: BP 110/56; PULSE 83; TEMP 97.9; BMI 46.5
[2016-10-04] MEDS ORDERED: hydrOXYzine PAMOATE 50 MG CAPSULE (FP) PO ONE (22:57)
--- NOTE | 2016-10-04 23:01 | PDOC ---
History of Present Illness <Kimani De Souza - Last Filed: 10/04/16 23:01> - History of Present Illness Initial Comments: 10/05/16 00:22 Patient is a 36 year old female with significant medical hx of DM and HTN who is presenting to the ED with anxiety and difficulty breathing. The patient also complains of numbness and tingling to her extremities. The patient was discharged yesterday from admission for chest pain and received a cardiac work up, including an ECHO, that was negative. Patient was seen at [facility] today and was discharged with diagnosis of anxiety attack. <Norma Chow - Last Filed: 10/05/16 00:24> - General Chief Complaint: Psychiatric Stated Complaint: ANXIETY Past History - Past Medical History Anemia: No Asthma: No Cancer: No CVA: No COPD: No Dementia: No Diabetes: Yes GI Disorders: No Disorders: No HTN: Yes Hypercholesterolemia: No Liver Disease: No Seizures: No Thyroid Disease: No - Surgical History Abdominal Surgery: No Appendectomy: No Cardiac Surgery: No Cholecystectomy: No Lung Surgery: No Neurologic Surgery: No Orthopedic Surgery: No - Immunization History Td Vaccination: No Immunization Up to Date: No - Psycho/Social/Smoking Cessation Hx Anxiety: No Suicidal Ideation: No Smoking Status: No Smoking History: Never smoked Have you smoked in the past 12 months: No Number of Cigarettes Smoked Daily: 0 Hx Alcohol Use: No Drug/Substance Use Hx: No Substance Use Type: None Hx Substance Use Treatment: No <Kimani De Souza - Last Filed: 10/04/16 23:01> <Norma Chow - Last Filed: 10/05/16 00:24> - Past Medical History Allergies/Adverse Reactions: Allergies Allergy/AdvReac Type Severity Reaction Status Date / Time Penicillins Allergy Verified 10/04/16 22:50 Home Medications: Ambulatory Orders Lisinopril 10 mg PO DAILY 10/02/16 Metformin HCl [Glucophage] 500 mg PO DAILY 10/02/16 Hydroxyzine HCl [Atarax -] 50 mg PO QID PRN #20 tablet 10/04/16 Review of Systems - Review of Systems Comments:: 10/05/16 00:22 GENERAL/CONSTITUTIONAL: No fever or chills. No weakness. HEAD, EYES, EARS, NOSE AND THROAT: No change in vision. No ear pain or discharge. No sore throat. CARDIOVASCULAR: Shortness of breath. No chest pain. RESPIRATORY: No cough, wheezing, or hemoptysis. GASTROINTESTINAL: No nausea, vomiting, diarrhea or constipation. GENITOURINARY: No dysuria, frequency, or change in urination. MUSCULOSKELETAL: No joint or muscle swelling or pain. No neck or back pain. SKIN: No rash NEUROLOGIC: Numbness and tingling to extremities. No headache, vertigo, loss of consciousness. PSYCHIATRIC: Anxious. <Norma Chow - Last Filed: 10/05/16 00:24> *Physical Exam - Vital Signs Last Vital Signs Temp Pulse Resp BP Pulse Ox 97.9 F 83 18 110/56 100 10/04/16 22:50 10/04/16 22:50 10/04/16 22:50 10/04/16 22:50 10/04/16 22:50 <Kimani De Souza - Last Filed: 10/04/16 23:01> - Vital Signs Last Vital Signs Temp Pulse Resp BP Pulse Ox 97.9 F 83 18 110/56 100 10/04/16 22:50 10/04/16 22:50 10/04/16 22:50 10/04/16 22:50 10/04/16 22:50 - Physical Exam Comments: 10/05/16 00:23 GENERAL: Anxious. Awake, alert, and fully oriented HEAD: No signs of trauma EYES: PERRLA, EOMI, sclera anicteric, conjunctiva clear ENT: Auricles normal inspection, hearing grossly normal, nares patent, oropharynx clear without exudates. Moist mucosa NECK: Normal ROM, supple, no lymphadenopathy, JVD, or masses LUNGS: Breath sounds equal, clear to auscultation bilaterally. No wheezes, and no crackles HEART: Regular rate and rhythm, normal S1 and S2, no murmurs, rubs or gallops ABDOMEN: Soft, nontender, normoactive bowel sounds. No guarding, no rebound. No masses EXTREMITIES: Normal range of motion, no edema. No clubbing or cyanosis. No cords, erythema, or tenderness NEUROLOGICAL: Cranial nerves II through XII grossly intact. Normal speech, normal gait SKIN: Warm, Dry, normal turgor, no rashes or lesions noted. ENDOCRINE: No increased thirst. No abnormal weight change. HEMATOLOGIC/LYMPHATIC: No anemia, easy bleeding, or history of blood clots. ALLERGIC/IMMUNOLOGIC: No hives or skin allergy. <Norma Chow - Last Filed: 10/05/16 00:24> ED Treatment Course - Medications Given in the ED: ED Medications Discontinued Medications Generic Name Dose Route Start Last Admin Trade Name Freq PRN Reason Stop Dose Admin Hydroxyzine Pamoate 50 mg 10/04/16 22:57 10/04/16 23:32 Vistaril - PO 10/04/16 22:58 50 mg ONCE ONE Administration <Norma Chow - Last Filed: 10/05/16 00:24> Medical Decision Making - Medical Decision Making 10/04/16 23:00 This is a 36yo F with anxiety and now multiple ED visits for the same in the last few days. I will Rx vistaril and encourage follow up with a psychotherapist for weekly therapy and psychiatrist for chronic anxiolytic/ antidepressants. There is no indication for any diagnostic evaluation at this time. <Kimani De Souza - Last Filed: 10/04/16 23:01> *DC/Admit/Observation/Transfer - Discharge Dispostion Admit: No Decision to Admit order Date/Time: 10/04/16 22:58 <Kimani De Souza - Last Filed: 10/04/16 23:01> - Attestations Scribe Attestion: 10/05/16 00:24 Documentation prepared by Norma Chow, acting as medical surgical tech for Kimani De Souza MD. <Norma Chow - Last Filed: 10/05/16 00:24> Diagnosis at time of Disposition: Anxiety - Discharge Dispostion Disposition: HOME Condition at time of disposition: Good - Prescriptions Prescriptions: Hydroxyzine HCl [Atarax -] 50 mg PO QID PRN #20 tablet PRN Reason: Anxiety - Patient Instructions Additional Instructions: Please follow up with a psychotherapist to prevent having to come to the ED for anxiety. Please follow up with your PMD within the next 24 hours and if there is any change otherwise in your symptoms, please return immediately to the ED.
== END 2016-10-04 23:44 | disposition home or self-care (01) ==
LOC: JER 22:43
DX: F41.9 Anxiety disorder, unspecified (principal); I10 Essential (primary) hypertension; E11.9 Type 2 diabetes mellitus without complications; Z79.84 Long term (current) use of oral hypoglycemic drugs
CPT/HCPCS: 99281-25

== ENCOUNTER 2018-01-04 21:22 | Emergency (ER) | payer SELFPAY ==
[2018-01-04 21:29] VITALS: BP 135/77; PULSE 67; TEMP 98.3; BMI 47.0
[2018-01-04] MEDS ORDERED: IBUPROFEN 400 MG TABLET (FP) PO ONE ×2 (23:37→23:41)
--- NOTE | 2018-01-04 23:39 | PDOC ---
History of Present Illness - General History Source: Patient Exam Limitations: No Limitations - History of Present Illness Initial Comments: 01/04/18 23:41 The patient is a 37 year old female, with a significant past medical history of DM, who presents to the emergency department with, 2 days of right sided CVA tenderness with occasional dysuria. She describes her occasional dysuria as pressure-like, She denies any recent trauma. She denies recent fevers, chills, headache or dizziness. She denies recent nausea, vomit, diarrhea or constipation. She denies recent frequency, urgency or hematuria. She denies recent chest pain or shortness of breath. Allergies: Penicillins. Past surgical history: None reported. Social history: Social alcohol usage. Nonsmoker. Denies recreational drug use. <Adele Eugene - Last Filed: 01/04/18 23:41> - General History Source: Patient <LexArnel vale - Last Filed: 01/05/18 02:56> - General Chief Complaint: Back Pain Stated Complaint: PAIN Time Seen by Provider: 01/04/18 21:59 Past History <Adele Eugene - Last Filed: 01/04/18 23:41> - Past Medical History Anemia: No Asthma: No Cancer: No CVA: No COPD: No Dementia: No Diabetes: Yes GI Disorders: No Disorders: No HTN: Yes Hypercholesterolemia: No Liver Disease: No Seizures: No Thyroid Disease: No - Surgical History Abdominal Surgery: No Appendectomy: No Cardiac Surgery: No Cholecystectomy: No Lung Surgery: No Neurologic Surgery: No Orthopedic Surgery: No - Immunization History Td Vaccination: No Immunization Up to Date: No - Suicide/Smoking/Psychosocial Hx Smoking Status: No Smoking History: Never smoked Have you smoked in the past 12 months: No Number of Cigarettes Smoked Daily: 0 Information on smoking cessation initiated: No Hx Alcohol Use: Yes (SOCIAL) Drug/Substance Use Hx: No Substance Use Type: None Hx Substance Use Treatment: No <Arnel Prater - Last Filed: 01/05/18 02:56> - Past Medical History Allergies/Adverse Reactions: Allergies Allergy/AdvReac Type Severity Reaction Status Date / Time Penicillins Allergy Verified 01/04/18 21:29 Home Medications: Ambulatory Orders Lisinopril 10 mg PO DAILY 10/02/16 Metformin HCl [Glucophage] 500 mg PO DAILY 10/02/16 hydrOXYzine HCL [Atarax -] 50 mg PO QID PRN #20 tablet 10/04/16 Ibuprofen 800 mg PO TID #30 tablet 01/05/18 Methocarbamol [Robaxin -] 750 mg PO Q8H #30 tablet 01/05/18 Review of Systems - Review of Systems Able to Perform ROS?: Yes Comments:: 01/04/18 23:41 CONSTITUTIONAL: Absent: fever, no chills, no fatigue EYES: Absent: visual changes ENT: Absent: ear pain, no sore throat CARDIOVASCULAR: Absent: chest pain, no palpitations RESPIRATORY: Absent: cough, no SOB GI: Absent: abdominal pain, no nausea, no vomiting, no constipation, no diarrhea GENITOURINARY: Absent: dysuria, no frequency, no hematuria MUSKULOSKELETAL: Present: Right sided CVA pain. Absent: no arthralgia, no myalgia SKIN: Absent: rash NEURO: Absent: headache All Other Systems: Reviewed and Negative <Adele Eugene - Last Filed: 01/04/18 23:41> *Physical Exam - Vital Signs Last Vital Signs Temp Pulse Resp BP Pulse Ox 98.3 F 67 20 135/77 99 01/04/18 21:27 01/04/18 21:27 01/04/18 21:27 01/04/18 21:27 01/04/18 21:27 - Physical Exam Comments: 01/04/18 23:42 GENERAL: Well developed, well nourished. Awake and alert. No acute distress. HEENT: Normocephalic, atraumatic. PERRLA, EOMI. No conjunctival pallor. Sclera are non- icteric. Moist mucous membranes. Oropharynx is clear. NECK: Supple. Full ROM. No JVD. Carotid pulses 2+ and symmetric, without bruits. No thyromegaly. No lymphadenopathy. CARDIOVASCULAR: Regular rate and rhythm. No murmurs, rubs, or gallops. Distal pulses are 2+ and symmetric. PULMONARY: No evidence of respiratory distress. Lungs clear to auscultation bilaterally. No wheezing, rales or rhonchi. ABDOMINAL: Soft. Non-tender. Non-distended. No rebound or guarding. No organomegaly. Normoactive bowel sounds. +MUSCULOSKELETAL Mild right sided CVA tenderness. Normal range of motion at all joints. No bony deformities or tenderness. EXTREMITIES: No cyanosis. No clubbing. No edema. No calf tenderness. SKIN: Warm and dry. Normal capillary refill. No rashes. No jaundice. NEUROLOGICAL: Alert, awake, appropriate. Cranial nerves 2-12 intact. No deficits to light touch and temperature in face, upper extremities and lower extremities. No motor deficits in the in face, upper extremities and lower extremities. Normoreflexic in the upper and lower extremities. Normal speech. Toes are down- going bilaterally. Gait is normal without ataxia. PSYCHIATRIC: Cooperative. Good eye contact. Appropriate mood and affect. <Adele Eugene - Last Filed: 01/04/18 23:41> - Vital Signs Last Vital Signs Temp Pulse Resp BP Pulse Ox 98.3 F 67 20 135/77 99 01/04/18 21:27 01/04/18 21:27 01/04/18 21:27 01/04/18 21:27 01/04/18 21:27 <Arnel Prater - Last Filed: 01/05/18 02:56> Medical Decision Making - Medical Decision Making 01/05/18 02:56 Dr. Prater: The scribe's documentation has been prepared under my direction and personally reviewed by me in its entirery. I confirm that the note above accurately reflects all work, treatment, procedures, and medical decision making performed by me. <Arnel Prater - Last Filed: 01/05/18 02:56> *DC/Admit/Observation/Transfer - Attestations Scribe Attestion: 01/04/18 23:42 Documentation prepared by Adele Eugene, acting as medical device assembler for Arnel Prater DO. <Adele Eugene - Last Filed: 01/04/18 23:41> - Discharge Dispostion Decision to Admit order: No <Arnel Prater - Last Filed: 01/05/18 02:56> Diagnosis at time of Disposition: Musculoskeletal back pain Back pain Qualifiers: Back pain laterality: right Sciatica presence: without sciatica - Discharge Dispostion Disposition: HOME Condition at time of disposition: Stable - Prescriptions Prescriptions: Ibuprofen 800 mg PO TID #30 tablet Methocarbamol [Robaxin -] 750 mg PO Q8H #30 tablet - Patient Instructions Printed Discharge Instructions: DI for Thoracic Back Pain, DI for Musculoskeletal Pain Additional Instructions: take medication as directed. Follow up with your doctor in two days if symptoms become worse Print Language: GEORGIAN
[2018-01-04 23:57] LABS: URINE APPEARANCE CLEAR; URINE BILIRUBIN NEGATIVE (<2.0 mg/dL); URINE COLOR LTYELLOW; URINE GLUCOSE (UA) NEGATIVE (NEGATIVE); URINE KETONE NEGATIVE (NEGATIVE); URINE LEUK ESTERASE NEGATIVE (NEGATIVE); URINE NITRITE NEGATIVE (NEGATIVE); URINE PROTEIN NEGATIVE (NEGATIVE); URINE UROBILINOGEN NEGATIVE mg/dL (0.2-1.0)
[2018-01-04 23:58] LABS: HCG,QUALITATIVE URINE NEGATIVE
== END 2018-01-05 03:19 | disposition home or self-care (01) ==
LOC: JER 21:22 → JERFT 21:22 → JER 01-05 03:19
DX: M54.9 Dorsalgia, unspecified (principal); I10 Essential (primary) hypertension; E11.9 Type 2 diabetes mellitus without complications; Z79.84 Long term (current) use of oral hypoglycemic drugs
CPT/HCPCS: 74176; 81003; 84703; 87086; 99281-25

== ENCOUNTER 2019-01-08 18:59 | Emergency (ER) | payer OTHER ==
[2019-01-08 19:05] VITALS: BMI 46.7
--- NOTE | 2019-01-08 19:50 | PDOC ---
History of Present Illness - General Chief Complaint: Pain Stated Complaint: VOMITING/ABDOMINAL PAIN History Source: Patient Exam Limitations: No Limitations - History of Present Illness Initial Comments: 01/08/19 19:40 Patient is a 38 year old female with h/o DM, HTN, c/s x 2, c/o generalized abd pain most on the right side x 8 days. Pain is intermittent, 8/10 occ twisting, and pressure with no alleviating or aggravating factors. Patient states she is had nausea but no vomiting, no diarrhea, no fever, no chills. She is also c/o headache for the same duration of time, on the right side of head, intermittent lasting for about 1 hour at a time and assoc/w nausea, no vomiting. States she take tylenol, the THOMAS goes but come back. PMD: [place] PMHX: as above PSOCHX: occ etoh, neg cig, drugs ALL: PCN GENERAL/CONSTITUTIONAL: No fever or chills. No weakness. No weight change. HEAD, EYES, EARS, NOSE AND THROAT: No change in vision. No ear pain or discharge. No sore throat. CARDIOVASCULAR: No chest pain or shortness of breath. RESPIRATORY: No cough, wheezing, or hemoptysis. GASTROINTESTINAL: (+) nausea, (-) vomiting, diarrhea or constipation. No rectal bleeding. GENITOURINARY: No dysuria, frequency, or change in urination. MUSCULOSKELETAL: No joint or muscle swelling or pain. No neck or back pain. SKIN AND BREASTS: No rash or easy bruising. NEUROLOGIC: No headache, vertigo, loss of consciousness, or loss of sensation. PSYCHIATRIC: No depression or anxiety. ENDOCRINE: No increased thirst. No abnormal weight change. HEMATOLOGIC/LYMPHATIC: No anemia, easy bleeding, or history of blood clots. ALLERGIC/IMMUNOLOGIC: No hives or skin allergy. No latex allergy. GENERAL: The patient is awake, alert, and fully oriented, in mild distress. HEAD: Normal with no signs of trauma. EYES: Pupils equal, round and reactive to light, extraocular movements intact, sclera anicteric, conjunctiva clear. ENT: Ears normal, nares patent, oropharynx clear without exudates. Moist mucous membranes. NECK: Normal range of motion, supple without lymphadenopathy, JVD, or masses. LUNGS: Breath sounds equal, clear to auscultation bilaterally. No wheezes, and no crackles. HEART: Regular rate and rhythm, normal S1 and S2 without murmur, rub. ABDOMEN: Soft, (+) tenderness in the right upper quadrant and epigastrium, normoactive bowel sounds. No guarding, no rebound. No masses. EXTREMITIES: Normal range of motion, no edema. No clubbing or cyanosis. No cords, erythema, or tenderness. NEUROLOGICAL: Cranial nerves II through XII grossly intact. Normal speech, normal gait. PSYCH: Normal mood, normal affect. SKIN: Warm, Dry, normal turgor, no rashes or lesions noted. Past History - Past Medical History Allergies/Adverse Reactions: Allergies Allergy/AdvReac Type Severity Reaction Status Date / Time Penicillins Allergy Verified 01/08/19 19:05 Home Medications: Ambulatory Orders Lisinopril 10 mg PO DAILY 10/02/16 Metformin HCl [Glucophage] 500 mg PO DAILY 10/02/16 hydrOXYzine HCL [Atarax -] 50 mg PO QID PRN #20 tablet 10/04/16 Ibuprofen 800 mg PO TID #30 tablet 01/05/18 Methocarbamol [Robaxin -] 750 mg PO Q8H #30 tablet 01/05/18 Acetaminophen [Tylenol -] 500 mg PO Q8H 5 Days #15 tablet 03/03/18 Metoclopramide HCl [Reglan -] 10 mg PO DAILY 5 Days #5 tablet 03/03/18 Sulfamethoxazole/Trimethoprim [Bactrim Ds -] 1 tab PO BID #14 tablet 01/08/19 Anemia: No Asthma: No Cancer: No CVA: No COPD: No Dementia: No Diabetes: Yes GI Disorders: No Disorders: No HTN: Yes Hypercholesterolemia: No Liver Disease: No Seizures: No Thyroid Disease: No - Surgical History Abdominal Surgery: No Appendectomy: No Cardiac Surgery: No Cholecystectomy: No Lung Surgery: No Neurologic Surgery: No Orthopedic Surgery: No - Immunization History Td Vaccination: No Immunization Up to Date: No - Suicide/Smoking/Psychosocial Hx Smoking Status: No Smoking History: Never smoked Have you smoked in the past 12 months: No Number of Cigarettes Smoked Daily: 0 Hx Alcohol Use: No Drug/Substance Use Hx: No Substance Use Type: None Hx Substance Use Treatment: No *Physical Exam - Vital Signs Last Vital Signs Temp Pulse Resp BP Pulse Ox 98.2 F 83 18 134/68 99 01/08/19 19:02 01/08/19 19:02 01/08/19 19:02 01/08/19 19:02 01/08/19 19:02 ED Treatment Course - LABORATORY CBC & Chemistry Diagram: 01/08/19 20:09 01/08/19 20:09 Medical Decision Making - Medical Decision Making 01/08/19 19:40 Patient is a 38 year old female with h/o DM, HTN, c/s x 2, c/o generalized abd pain most on the right side x 8 days. Pain is intermittent, 8/10 occ twisting, and pressure with no alleviating or aggravating factors. Patient states she is had nausea but no vomiting, no diarrhea, no fever, no chills. She is also c/o headache for the same duration of time, on the right side of head, intermittent lasting for about 1 hour at a time and assoc/w nausea, no vomiting. States she take tylenol, the THOMAS goes but come back. Patient is tender in the right upper quadrant will rule out cholecystitis light of the nausea. Labs, ultrasound right upper quadrant. Pepcid, IV fluids, Toradol. reassess Labs as no acute findings except for WBCs on the urine. will treat with Keflex and send culture Discharge patient feels improved and is tolerating by mouth. Patient Full Name: MARIAH NOBLE Patient Accession No: [id number] Patient : 1980 Reason for Exam: Epigastric pain per pt. Referring Physician: Patient Name: SKYLAR LEMUS THIS IS A PRELIMINARY REPORT FROM [facility] EXAM: Right upper quadrant ultrasound IMAGES: 49 DATE OF EXAM: 2019-01-08 20:38:11 REASON FOR EXAM: Epigastric pain COMPARISON: None. FINDINGS: No sonographic evidence for cholelithiasis or acute cholecystitis. No evidence of biliary obstruction. Limited evaluation of the pancreatic head and body is grossly unremarkable. Probable hepatic steatosis. The right kidney is within normal limits without hydronephrosis. THIS DOCUMENT HAS BEEN ELECTRONICALLY SIGNED Jay Jay Storey MD 01/08/2019 23:14 KRISTIN MArthur. Please call [facility] [phone] ([phone]) with questions. INTERPRETING RADIOLOGIST: Jay Jay Storey MD Electronically Signed: Jan 08, 2019 11:16PM EDT I discussed the physical exam findings, ancillary test results and final diagnoses with the patient. I answered all of the patient's questions. The patient was satisfied with the care received and felt comfortable with the discharge plan and treatment plan. The Patient agrees to follow up with the primary care physician within 24-72 hours. *DC/Admit/Observation/Transfer Diagnosis at time of Disposition: Abdominal pain Qualifiers: Abdominal location: right upper quadrant Qualified Code(s): R10.11 - Right upper quadrant pain UTI (urinary tract infection) Qualifiers: Urinary tract infection type: site unspecified Hematuria presence: without hematuria Qualified Code(s): N39.0 - Urinary tract infection, site not specified - Discharge Dispostion Disposition: HOME Condition at time of disposition: Stable - Prescriptions Prescriptions: Sulfamethoxazole/Trimethoprim [Bactrim Ds -] 1 tab PO BID #14 tablet - Referrals - Patient Instructions Printed Discharge Instructions: DI for Urinary Tract Infection (UTI), DI for Abdominal Pain-Adult Additional Instructions: Your Discharge Instructions: You must call primary care physician within 24 hours to arrange follow-up. Return to the Emergency Department with any new, persistent or worsening symptoms, for fever, chills, SOB, dizziness or any other concerning changes that may occur. - Post Discharge Activity
[2019-01-08] MEDS ORDERED: KETOROLAC TROMETHAMINE 30 MG/1 ML VIAL IVPUSH ONE (19:51)
[2019-01-08] MEDS ORDERED: SODIUM CHLORIDE 0.9% 500 ML INFUS.BAG IV ONE (19:51)
[2019-01-08] MEDS ORDERED: KETOROLAC TROMETHAMINE 30 MG/1 ML VIAL ONE (20:07)
[2019-01-08 20:21] LABS: BASO % 0.7 % (0-2.0); EOS % 1.3 % (0-4.5); HEMATOCRIT 37.3 % (32.4-45.2); HEMOGLOBIN 12.7 GM/dL (10.7-15.3); LYMPH % 28.9 % (8-40); MCH 27.8 pg (25.7-33.7); MEAN CELL VOLUME 81.8 fl (80-96); MEAN PLT VOLUME 9.5 fl (7.5-11.1); NEUT % 65.1 % (42.8-82.8); PLATELET COUNT 294 K/MM3 (134-434); RBC 4.56 M/mm3 (3.60-5.2); WHITE BLOOD COUNT 7.9 K/mm3 (4.0-10.0)
[2019-01-08 21:13] LABS: ALBUMIN 3.8 g/dl (3.4-5.0); BILIRUBIN,TOTAL 0.2 mg/dL (0.2-1); CALCIUM 8.6 mg/dL (8.5-10.1); CREATININE 0.7 mg/dL (0.55-1.3); POTASSIUM 3.1 mmol/L (3.5-5.1); TOT PROT 7.2 g/dl (6.4-8.2)
[2019-01-08 22:59] LABS: EPI CELLS >36 /HPF (0-5/HPF); HYALINE CASTS 23 /lpf (0-8); URINE APPEARANCE TURBID; URINE BACTERIA 3334.7 /hpf (NEGATIVE); URINE BILIRUBIN 1+ (NEGATIVE); URINE COLOR DK YELLOW; URINE GLUCOSE (UA) NEGATIVE (NEGATIVE); URINE KETONE 1+ (NEGATIVE); URINE LEUK ESTERASE 1+ (NEGATIVE); URINE NITRITE POSITIVE (NEGATIVE); URINE PROTEIN 1+ (NEGATIVE); URINE WBC 34 /hpf (0-5)
[2019-01-08 23:11] LABS: URINE RBC 6.6 /hpf (0-4)
[2019-01-08] MEDS ORDERED: SULFAMETHOXAZOLE/TRIMETHOPRIM 800MG/160MG D.S. TABLET PO ONE (23:49)
[2019-01-08] MEDS ORDERED: SULFAMETHOXAZOLE/TRIMETHOPRIM 800MG/160MG D.S. TABLET ONE (23:55)
[2019-01-09 00:22] VITALS: BP 125/70; PULSE 70; TEMP 98.4
== END 2019-01-09 00:23 | disposition home or self-care (01) ==
LOC: JER 18:59
PROC: 3E0233Z Introduction of Anti-inflammatory into Muscle, Percutaneous Approach (ICD-10-PCS; principal; 2019-01-08)
PROC: 3E0337Z Introduction of Electrolytic and Water Balance Substance into Peripheral Vein, Percutaneous Approach (ICD-10-PCS; 2019-01-08)
DX: N39.0 Urinary tract infection, site not specified (principal); R10.11 Right upper quadrant pain; I10 Essential (primary) hypertension; E11.9 Type 2 diabetes mellitus without complications; Z79.84 Long term (current) use of oral hypoglycemic drugs
CPT/HCPCS: 36415; 76705-TC; 80053; 81003; 83690; 85025; 87086; 96374; 99283-25

== ENCOUNTER 2019-02-04 15:52 | Emergency (ER) | payer OTHER ==
[2019-02-04 16:04] VITALS: BP 126/66; PULSE 73; TEMP 97.7; BMI 47.2
--- NOTE | 2019-02-04 16:25 | PDOC ---
History of Present Illness - General Chief Complaint: Rash Stated Complaint: BODY RASH Time Seen by Provider: 02/04/19 16:09 History Source: Patient Exam Limitations: No Limitations (R axilla rash X 1.5wk) - History of Present Illness Associated Symptoms: reports: rash. denies: fever Past History - Travel Traveled outside of the country in the last 30 days: No Close contact w/someone who was outside of country & ill: No - Past Medical History Allergies/Adverse Reactions: Allergies Allergy/AdvReac Type Severity Reaction Status Date / Time Penicillins Allergy Severe Itching Verified 02/04/19 15:59 Home Medications: Ambulatory Orders Lisinopril 10 mg PO DAILY 10/02/16 Metformin HCl [Glucophage] 500 mg PO DAILY 10/02/16 hydrOXYzine HCL [Atarax -] 50 mg PO QID PRN #20 tablet 10/04/16 Ketoconazole 2% Cream [Nizoral 2% Cream -] 1 applic TP BID 14 Days #60 grams Triamcinolone 0.5% Ointment [Aristocort 0.5% Ointment -] 1 applic TP BID 7 Days #30 grams 02/04/19 Anemia: No Asthma: No Cancer: No CVA: No COPD: No Dementia: No Diabetes: Yes GI Disorders: No Disorders: No HTN: Yes Hypercholesterolemia: No Liver Disease: No Seizures: No Thyroid Disease: No - Surgical History Abdominal Surgery: No Appendectomy: No Cardiac Surgery: No Cholecystectomy: No Lung Surgery: No Neurologic Surgery: No Orthopedic Surgery: No - Immunization History Td Vaccination: No Immunization Up to Date: No - Suicide/Smoking/Psychosocial Hx Smoking Status: No Smoking History: Never smoked Have you smoked in the past 12 months: No Number of Cigarettes Smoked Daily: 0 Hx Alcohol Use: No Drug/Substance Use Hx: No Substance Use Type: None Hx Substance Use Treatment: No Review of Systems - Review of Systems Constitutional: No: Chills, Fever Integumentary: Yes: Pruritus, Rash. No: Bruising, Erythema, Flushing, Lesions, Lumps *Physical Exam - Vital Signs Last Vital Signs Temp Pulse Resp BP Pulse Ox 97.7 F 73 20 126/66 97 02/04/19 16:00 02/04/19 16:00 02/04/19 16:00 02/04/19 16:00 02/04/19 16:00 - Physical Exam General Appearance: Yes: Nourished Respiratory/Chest: positive: Lungs Clear, Normal Breath Sounds Cardiovascular: positive: Regular Rhythm, Regular Rate, S1, S2 Integumentary: positive: Rash (R axilla: + chafing of skin under arm with raise rash, not tender to touch) Neurologic: positive: metalizer II-XII NML intact, Fully Oriented, Alert, Normal Mood/ Affect, Normal Response, Motor Strength 11/20 Medical Decision Making - Medical Decision Making 02/04/19 16:36 38y/o F with R axilla rash with itching X 1.5wks Denies fever,chills exam with tinea Rx for antifungal f/u dermatology *DC/Admit/Observation/Transfer Diagnosis at time of Disposition: Tinea corporis - Discharge Dispostion Disposition: HOME Condition at time of disposition: Stable Decision to Admit order: No - Prescriptions Prescriptions: Ketoconazole 2% Cream [Nizoral 2% Cream -] 1 applic TP BID 14 Days #60 grams Triamcinolone 0.5% Ointment [Aristocort 0.5% Ointment -] 1 applic TP BID 7 Days #30 grams - Referrals Referrals: Juan A Richard [Non Staff, Medical] - - Patient Instructions Printed Discharge Instructions: DI for Tinea Corporis Additional Instructions: Your are been treated for fungal infection Please follow up with dermatology Return to the ER If worsening symptoms occurs - Post Discharge Activity
== END 2019-02-04 16:32 | disposition home or self-care (01) ==
LOC: JERFT 15:52
DX: B35.4 Tinea corporis (principal); E11.9 Type 2 diabetes mellitus without complications; I10 Essential (primary) hypertension
CPT/HCPCS: 99281-25

== ENCOUNTER 2020-03-04 20:06 | Emergency (ER) | payer OTHER ==
--- NOTE | 2020-03-04 20:10 | PDOC ---
Rapid Medical Evaluation Time Seen by Provider: 03/04/20 20:09 Medical Evaluation: Allergies Allergy/AdvReac Type Severity Reaction Status Date / Time Penicillins Allergy Severe Itching Verified 02/04/19 15:59 03/04/20 20:09 I have performed a brief in-person evaluation of this patient. The patient presents with a chief complaint of:dysuria x 1 week. No n/v/f/c. H/o HTN and DM Pertinent physical exam findings:stable I have ordered the following:ua/ucx The patient will proceed to the ED for further evaluation. 03/04/20 20:10 Discharge Disposition - Diagnosis Dysuria - Referrals - Patient Instructions - Post Discharge Activity
[2020-03-04 20:12] VITALS: BP 165/81; PULSE 79; TEMP 98; BMI 46.5
--- NOTE | 2020-03-04 20:41 | PDOC ---
History of Present Illness - General Chief Complaint: Urinary Problem Stated Complaint: PAIN Time Seen by Provider: 03/04/20 20:09 - History of Present Illness Initial Comments: 03/04/20 20:41 39-year-old female with dysuria x5 days without systemic symptoms past medical history of diabetes Past History - Medical History Allergies/Adverse Reactions: Allergies Allergy/AdvReac Type Severity Reaction Status Date / Time Penicillins Allergy Severe Itching Verified 03/04/20 20:10 Home Medications: Ambulatory Orders Lisinopril 10 mg PO DAILY 10/02/16 Metformin HCl [Glucophage] 500 mg PO DAILY 10/02/16 hydrOXYzine HCL [Atarax -] 50 mg PO QID PRN #20 tablet 10/04/16 Ketoconazole 2% Cream [Nizoral 2% Cream -] 1 applic TP BID 14 Days #60 grams 02/04/19 Triamcinolone 0.5% Ointment [Aristocort 0.5% Ointment -] 1 applic TP BID 7 Days #30 grams 02/04/19 Anemia: No Asthma: No Cancer: No CVA: No COPD: No Dementia: No Diabetes: Yes GI Disorders: No Disorders: No HTN: Yes Hypercholesterolemia: No Liver Disease: No Seizures: No Thyroid Disease: No - Surgical History Abdominal Surgery: No Appendectomy: No Cardiac Surgery: No Cholecystectomy: No Lung Surgery: No Neurologic Surgery: No Orthopedic Surgery: No - Reproductive History Is Patient Now?: No - Immunization History Td Vaccination: No Immunization Up to Date: No - Psycho-Social/Smoking History Smoking Status: No Smoking History: Never smoked Have you smoked in the past 12 months: No Number of Cigarettes Smoked Daily: 0 - Substance Abuse Hx (Audit-C & DAST Scrn) How often the patient has a drink containing alcohol: Never Score: In Men: 4 or > Positive; In Women: 3 or > Positive: 0 Screen Result (Pos requires Nsg. Audit-10AR): Negative Review of Systems - Review of Systems Constitutional: No: Fever : Yes: Dysuria *Physical Exam - Vital Signs Last Vital Signs Temp Pulse Resp BP Pulse Ox 98.0 F 79 18 165/81 99 03/04/20 20:10 03/04/20 20:10 03/04/20 20:10 03/04/20 20:10 03/04/20 20:10 - Physical Exam General Appearance: Yes: Appropriately Dressed. No: Apparent Distress HEENT: positive: Symmetrical Neck: positive: Supple Respiratory/Chest: negative: Respiratory Distress Musculoskeletal: positive: Normal Inspection Extremity: positive: Normal Inspection Integumentary: positive: Normal Color Neurologic: positive: speeder tender II-XII NML intact, Fully Oriented Medical Decision Making - Medical Decision Making 03/04/20 22:04 No UTI follow-up with CUSTOMER SUPPORT ASSISTANT. I have reviewed the pathophysiology with the patient. They are in agreement with the treatment plan all questions were answered to their satisfaction. Understanding for follow-up without fail was also conveyed to the patient. Again they are in agreement. Discharge - Discharge Information Problems reviewed: Yes Clinical Impression/Diagnosis: Dysuria Condition: Stable Disposition: HOME - Admission No - Follow up/Referral Referrals: Marie Moss MD [Staff Physician] - - Patient Discharge Instructions Additional Instructions: Your urine was negative for infection but did show glucose. Continue your diabetes medication as directed and return to the emergency room should symptoms worsen. Without fail follow-up with CUSTOMER SUPPORT ASSISTANT in 1 to 2 days for further evaluation and treatment options. - Post Discharge Activity
[2020-03-04 21:59] LABS: PH,URINE 5.5 (5.0-8.0); URINE APPEARANCE Clear; URINE BILIRUBIN Negative (NEGATIVE); URINE COLOR Yellow; URINE GLUCOSE (UA) 3+ (NEGATIVE); URINE KETONE Negative (NEGATIVE); URINE LEUK ESTERASE Negative (NEGATIVE); URINE NITRITE Negative (NEGATIVE); URINE PROTEIN Negative (NEGATIVE); URINE UROBILINOGEN 0.2 mg/dL (0.2-1.0)
== END 2020-03-04 22:24 | disposition home or self-care (01) ==
LOC: JERFT 20:06
DX: R30.0 Dysuria (principal)
CPT/HCPCS: 81003; 84703; 87077; 87086; 99283-25